=== PATIENT | female | born 1980 | race Caucasian/White ===

== ENCOUNTER 2018-10-10 10:11 | Outpatient (CLI) | payer OTHER ==
[~2018-10-10 10:11] MED LIST: DOCU-131 PO; IBUP-1222 PO; LEVO50TA PO; OXYC-302 PO; PREN1TAB60 PO
== END 2018-10-10 23:59 | disposition home or self-care (01) ==
LOC: CFH 10:11
PROVIDERS: ATTEND Family Medicine
DX: M25.561 Pain in right knee (principal)

== ENCOUNTER → 2020-02-11 | Outpatient (CLI) | payer OTHER ==
[~2020-02-11] MED LIST changes: +SINCALIDE (KINEVAC) 5 MCG ONE
== END | disposition home or self-care (01) ==
LOC: RAD 09:31
PROVIDERS: ATTEND Family Medicine
DX: R10.84 Generalized abdominal pain (principal)
CPT/HCPCS: 76700; 78227; A9537; J2805